=== PATIENT | female | born 1980 | race Caucasian/White ===

== ENCOUNTER 2017-11-03 09:55 | Day surgery (SDC) | payer OTHER ==
[2017-11-03] MEDS ORDERED: NORMAL SALINE IV ONE (10:30)
[2017-11-03] MEDS ORDERED: SODIUM FERRIC GLUC COMPLEX IV ONE (10:30)
[2017-11-03 10:41] VITALS: BP 103/71
== END 2017-11-03 12:15 | disposition home or self-care (01) ==
LOC: SSTAY O 09:55
PROVIDERS: ATTEND Obstetrics & Gynecology
DX: O99.019 Anemia complicating pregnancy, unspecified trimester (principal)
CPT/HCPCS: 96365; J2916

== ENCOUNTER 2017-11-04 08:33 | Day surgery (SDC) | payer OTHER ==
[~2017-11-04] VITALS: Ht 162.6 cm; Wt 77.7 kg
[~2017-11-04 08:33] MED LIST: NORMAL SALINE IV ONE; SODIUM FERRIC GLUC COMPLEX IV ONE
[2017-11-04 10:00] VITALS: BP 99/52
== END 2017-11-04 11:26 | disposition home or self-care (01) ==
LOC: SSTAY O 08:33
PROVIDERS: ATTEND Obstetrics & Gynecology
DX: O99.019 Anemia complicating pregnancy, unspecified trimester (principal)
CPT/HCPCS: 96365; J2916

== ENCOUNTER 2017-11-08 08:57 | Day surgery (SDC) | payer OTHER ==
[~2017-11-08] VITALS: Ht 162.6 cm; Wt 78.6 kg
[2017-11-08] MEDS ORDERED: SODIUM FERRIC GLUC COMPLEX IV ONE (09:05)
[2017-11-08] MEDS ORDERED: NORMAL SALINE IV ONE (09:05)
[2017-11-08] MEDS ORDERED: NO HOME MEDS (09:36)
[2017-11-08 09:44] VITALS: BP 106/57
[2017-11-08 10:55] VITALS: BP 105/52
== END 2017-11-08 10:55 | disposition home or self-care (01) ==
LOC: SSTAY O 08:57
PROVIDERS: ATTEND Obstetrics & Gynecology
DX: O99.012 Anemia complicating pregnancy, second trimester (principal)
CPT/HCPCS: 96365; J2916

== ENCOUNTER 2017-11-29 10:42 | Outpatient (CLI) | payer OTHER ==
[~2017-11-29 10:42] MED LIST changes: +NO HOME MEDS; -NORMAL SALINE IV ONE; -SODIUM FERRIC GLUC COMPLEX IV ONE
[2017-11-29 11:21] LABS: BASOPHILS # (AUTO) 0.1 X10'3 (0-0.2); BASOPHILS % (AUTO) 0.4 % (0-1); EOSINOPHILS # (AUTO) 0.1 X10'3 (0-0.9); EOSINOPHILS % (AUTO) 0.9 % (0-6); HEMOGLOBIN 10.4 g/dl (12.0-16.0); LYMPHOCYTES # (AUTO) 1.5 X10'3 (1.1-4.8); LYMPHOCYTES % (AUTO) 11.2 % (21-51); MEAN CORPUSCULAR HEMOGLOBIN 29.2 PG (27.0-31.0); MEAN CORPUSCULAR HGB CONC 34.8 % (33.0-36.5); MEAN CORPUSCULAR VOLUME 83.7 FL (78-98); MEAN PLATELET VOLUME 8.4 FL (7.4-10.4); MONOCYTES # (AUTO) 0.6 X10'3 (0-0.9); MONOCYTES % (AUTO) 4.9 % (2-12); NEUTROPHILS # (AUTO) 10.8 X10'3 (1.8-7.7); NEUTROPHILS % (AUTO) 82.6 % (42-75); PLATELET COUNT 283 X10'3 (140-440); RED BLOOD COUNT 3.58 X10'6 (4.20-5.60); RED CELL DISTRIBUTION WIDTH 17.9 % (11.5-14.5); WHITE BLOOD COUNT 13.1 X10'3 (4.5-11.0)
[2017-11-29 12:23] LABS: ANISOCYTOSIS 2+; PLATELET ESTIMATE NORMAL; TOTAL CELLS COUNTED 100
[2017-11-29 12:24] LABS: TOXIC GRANULATION 2+
== END 2017-11-29 23:59 | disposition home or self-care (01) ==
LOC: LAB 10:42
PROVIDERS: ATTEND Obstetrics & Gynecology
DX: O99.013 Anemia complicating pregnancy, third trimester (principal); Z3A.00 Weeks of gestation of pregnancy not specified
CPT/HCPCS: 36415; 85025

== ENCOUNTER 2017-12-27 09:16 | Outpatient (CLI) | payer OTHER ==
[2017-12-27 09:49] LABS: BASOPHILS % (AUTO) 0.2 % (0-1); EOSINOPHILS # (AUTO) 0.4 X10'3 (0-0.9); EOSINOPHILS % (AUTO) 2.9 % (0-6); HEMOGLOBIN 9.8 g/dl (12.0-16.0); LYMPHOCYTES # (AUTO) 1.3 X10'3 (1.1-4.8); LYMPHOCYTES % (AUTO) 10.4 % (21-51); MEAN CORPUSCULAR HEMOGLOBIN 27.6 PG (27.0-31.0); MEAN CORPUSCULAR HGB CONC 33.9 % (33.0-36.5); MEAN CORPUSCULAR VOLUME 81.5 FL (78-98); MEAN PLATELET VOLUME 8.4 FL (7.4-10.4); MONOCYTES # (AUTO) 0.5 X10'3 (0-0.9); MONOCYTES % (AUTO) 3.8 % (2-12); NEUTROPHILS # (AUTO) 10.6 X10'3 (1.8-7.7); NEUTROPHILS % (AUTO) 82.7 % (42-75); PLATELET COUNT 287 X10'3 (140-440); RED BLOOD COUNT 3.56 X10'6 (4.20-5.60); RED CELL DISTRIBUTION WIDTH 18.6 % (11.5-14.5); WHITE BLOOD COUNT 12.9 X10'3 (4.5-11.0)
== END 2017-12-27 23:59 | disposition home or self-care (01) ==
LOC: LAB 09:16
PROVIDERS: ATTEND Physician Assistant
DX: O99.013 Anemia complicating pregnancy, third trimester (principal); O09.523 Supervision of elderly multigravida, third trimester; Z3A.00 Weeks of gestation of pregnancy not specified
CPT/HCPCS: 36415; 85025

== ENCOUNTER 2017-12-30 09:05 | Day surgery (SDC) | payer OTHER ==
[~2017-12-30] VITALS: Ht 162.6 cm; Wt 83.0 kg
[2017-12-30] MEDS ORDERED: SODIUM FERRIC GLUC COMPLEX IV ONE (09:40)
[2017-12-30] MEDS ORDERED: NORMAL SALINE IV ONE (09:40)
[2017-12-30 10:49] VITALS: BP 114/60
== END 2017-12-30 11:45 | disposition home or self-care (01) ==
LOC: SSTAY O 09:05
PROVIDERS: ATTEND Obstetrics & Gynecology
DX: O99.019 Anemia complicating pregnancy, unspecified trimester (principal); Z3A.00 Weeks of gestation of pregnancy not specified
CPT/HCPCS: 96365; J2916; J7030

== ENCOUNTER 2018-01-02 09:03 | Day surgery (SDC) | payer OTHER ==
[2018-01-02] MEDS ORDERED: SODIUM FERRIC GLUC COMPLEX IV ONE (09:35)
[2018-01-02] MEDS ORDERED: NORMAL SALINE IV ONE (09:35)
[2018-01-02 10:30] VITALS: BP 117/71
[2018-01-02 11:40] VITALS: BP 102/62
== END 2018-01-02 11:40 | disposition home or self-care (01) ==
LOC: SSTAY O 09:03
PROVIDERS: ATTEND Obstetrics & Gynecology
DX: O99.019 Anemia complicating pregnancy, unspecified trimester (principal); Z3A.00 Weeks of gestation of pregnancy not specified
CPT/HCPCS: 96365; J2916; J7030

== ENCOUNTER 2018-01-03 09:15 | Day surgery (SDC) | payer OTHER ==
[~2018-01-03] VITALS: Ht 162.6 cm; Wt 81.9 kg
[2018-01-03] MEDS ORDERED: NORMAL SALINE IV ONE (09:20)
[2018-01-03] MEDS ORDERED: SODIUM FERRIC GLUC COMPLEX IV ONE (09:20)
[2018-01-03 10:10] VITALS: BP 111/48
[2018-01-03 11:40] VITALS: BP 120/65
== END 2018-01-03 11:40 | disposition home or self-care (01) ==
LOC: SSTAY O 09:15
PROVIDERS: ATTEND Obstetrics & Gynecology
DX: O09.529 Supervision of elderly multigravida, unspecified trimester (principal); O99.019 Anemia complicating pregnancy, unspecified trimester; Z3A.00 Weeks of gestation of pregnancy not specified
CPT/HCPCS: 96365; J2916; J7030

== ENCOUNTER 2018-01-06 09:57 | Outpatient (CLI) | payer OTHER ==
[2018-01-06 10:18] LABS: BASOPHILS % (AUTO) 0.3 % (0-1); EOSINOPHILS # (AUTO) 0.2 X10'3 (0-0.9); EOSINOPHILS % (AUTO) 1.8 % (0-6); HEMOGLOBIN 10.2 g/dl (12.0-16.0); LYMPHOCYTES # (AUTO) 1.3 X10'3 (1.1-4.8); LYMPHOCYTES % (AUTO) 9.8 % (21-51); MEAN CORPUSCULAR HEMOGLOBIN 27.7 PG (27.0-31.0); MEAN CORPUSCULAR HGB CONC 33.9 % (33.0-36.5); MEAN CORPUSCULAR VOLUME 81.9 FL (78-98); MEAN PLATELET VOLUME 7.8 FL (7.4-10.4); MONOCYTES # (AUTO) 0.5 X10'3 (0-0.9); MONOCYTES % (AUTO) 3.3 % (2-12); NEUTROPHILS # (AUTO) 11.6 X10'3 (1.8-7.7); NEUTROPHILS % (AUTO) 84.8 % (42-75); PLATELET COUNT 279 X10'3 (140-440); RED BLOOD COUNT 3.66 X10'6 (4.20-5.60); RED CELL DISTRIBUTION WIDTH 19.4 % (11.5-14.5); WHITE BLOOD COUNT 13.7 X10'3 (4.5-11.0)
== END 2018-01-06 23:59 | disposition home or self-care (01) ==
LOC: LAB 09:57
PROVIDERS: ATTEND Physician Assistant
DX: O26.893 Other specified pregnancy related conditions, third trimester (principal); Z3A.00 Weeks of gestation of pregnancy not specified
CPT/HCPCS: 36415; 85025

== ENCOUNTER 2018-03-30 08:02 | Day surgery (SDC) | payer OTHER ==
[~2018-03-30] VITALS: Ht 162.6 cm; Wt 74.6 kg
[2018-03-30] VITALS (8 sets, daily range): BP systolic 113–129; BP diastolic 63–78
[~2018-03-30 08:02] MED LIST changes: +famotidine 20mg tablet PO ONE; +ringers solution, lacted 1,000 ML IV SCH
[2018-03-30 08:45] LABS: ALANINE AMINOTRANSFERASE 15 U/L (12-78); ALBUMIN/GLOBULIN RATIO 1.1 (1.1-1.5); ALKALINE PHOSPHATASE 55 IU/L (46-116); ANION GAP 8 (8-16); ASPARTATE AMINO TRANSFERASE 12 U/L (10-37); BILIRUBIN,TOTAL 0.7 MG/DL (0.1-1.0); BLOOD UREA NITROGEN 8 MG/DL (7-18); BUN/CREATININE RATIO 9.5 (6.6-38.0); CALCIUM 8.8 MG/DL (8.5-10.1); CHLORIDE 104 MMOL/L (99-107); CREATININE 0.84 MG/DL (0.40-0.90); GLUCOSE 86 MG/DL (70-104); POTASSIUM 3.5 MMOL/L (3.5-5.1); SODIUM 142 MMOL/L (135-145); TOTAL CARBON DIOXIDE 29.9 MMOL/L (24-32); TOTAL PROTEIN 7.6 G/DL (6.4-8.2); eGFR 76 ML/MIN
[2018-03-30 08:50] LABS: BASOPHILS % (AUTO) 0.4 % (0-1); EOSINOPHILS # (AUTO) 0.2 X10'3 (0-0.9); EOSINOPHILS % (AUTO) 2.7 % (0-6); HCG SERUM QL NEGATIVE; HEMATOCRIT 37.5 % (35.0-45.0); HEMOGLOBIN 12.9 g/dl (12.0-16.0); LYMPHOCYTES # (AUTO) 1.5 X10'3 (1.1-4.8); LYMPHOCYTES % (AUTO) 23.1 % (21-51); MEAN CORPUSCULAR HEMOGLOBIN 29.9 PG (27.0-31.0); MEAN CORPUSCULAR HGB CONC 34.3 % (33.0-36.5); MEAN CORPUSCULAR VOLUME 87.2 FL (78-98); MONOCYTES # (AUTO) 0.3 X10'3 (0-0.9); MONOCYTES % (AUTO) 4.4 % (2-12); NEUTROPHILS # (AUTO) 4.4 X10'3 (1.8-7.7); NEUTROPHILS % (AUTO) 69.4 % (42-75); PLATELET COUNT 295 X10'3 (140-440); RED CELL DISTRIBUTION WIDTH 14.7 % (11.5-14.5); WHITE BLOOD COUNT 6.3 X10'3 (4.5-11.0)
[2018-03-30] MEDS ORDERED: BUPIVAcaine/PF 2.5 mg/ml (0.25%) 30ml vial ONE (09:10)
[2018-03-30] MEDS ORDERED: fentaNYL/PF 50MCG/1 ML 2ML syringe ONE (09:56)
[2018-03-30] MEDS ORDERED: rocuronium 10mg/ml inj IV ONE (09:56)
[2018-03-30] MEDS ORDERED: dexamethasone sod phosphate 4mg/ml inj. ONE (09:56)
[2018-03-30] MEDS ORDERED: LIDOcaine 2% (20mg/ml) 5ml vial ONE (09:56)
[2018-03-30] MEDS ORDERED: propofol inj 20 ML IV ONE (09:56)
[2018-03-30] MEDS ORDERED: midazolam 2 mg/2 ml injection ONE (09:56)
[2018-03-30] MEDS ORDERED: glycopyrrolate 0.2mg/ml inj ONE (10:09)
[2018-03-30] MEDS ORDERED: neostigmine methylsulfate 1 MG/ML 10ml vial ONE (10:09)
[2018-03-30] MEDS ORDERED: ringers solution, lacted 1,000 ML IV SCH (10:21)
[2018-03-30] MEDS ORDERED: ondansetron/PF 4mg/2ml inj IV PRN (10:25)
[2018-03-30] MEDS ORDERED: morphine 4 MG/ML inj SYRINge IV PRN ×2 (10:25)
[2018-03-30] MEDS ORDERED: fentaNYL/PF 50MCG/1 ML 2ML syringe IV PRN ×2 (10:25)
[2018-03-30] MEDS ORDERED: hydrALAZINE 20mg/ml inj. IV PRN (10:25)
[2018-03-30] MEDS ORDERED: labetalol 20mg/4ml (5mg/ml) syringe IV PRN (10:25)
[2018-03-30] MEDS ORDERED: BUPIVAcaine/PF 2.5 mg/ml (0.25%) 30ml vial IJ ONE (10:48)
== END 2018-03-30 11:40 | disposition home or self-care (01) ==
LOC: PRE-OP 08:02 → PAS 11:40
PROVIDERS: ATTEND Obstetrics & Gynecology
DX: Z30.2 Encounter for sterilization (principal); Z79.899 Other long term (current) drug therapy; Z83.3 Family history of diabetes mellitus; Z80.9 Family history of malignant neoplasm, unspecified; Z82.49 Family history of ischemic heart disease and other diseases of the circulatory system
CPT/HCPCS: 36415; 58661; 80053; 84703; 85025; 86885; 86900; 86901; J1100; J2001; J2250; J2704; J2710; J3010; J3490; J7120; A6250

== ENCOUNTER 2018-07-04 04:42 | Outpatient (CLI) | payer SELFPAY ==
[~2018-07-04 04:42] MED LIST changes: -famotidine 20mg tablet PO ONE; -ringers solution, lacted 1,000 ML IV SCH
[2018-07-04 10:19] LABS: CHOL/HDL RATIO 3.38 (0.00-4.99)
[2018-07-04 10:23] LABS: HEMOGLOBIN A1C 5.5 % (4.5-6.2)
== END 2018-07-04 23:59 | disposition home or self-care (01) ==
LOC: HW HEART 04:42
DX: Z13.6 Encounter for screening for cardiovascular disorders (principal)
CPT/HCPCS: 36415

== ENCOUNTER 2018-11-10 08:17 | Outpatient (CLI) | payer OTHER ==
[2018-11-10 08:56] LABS: BASOPHILS % (AUTO) 0.5 % (0-1); EOSINOPHILS # (AUTO) 0.1 X10'3 (0-0.9); EOSINOPHILS % (AUTO) 2.5 % (0-6); HEMATOCRIT 40.1 % (35.0-45.0); HEMOGLOBIN 13.1 g/dl (12.0-16.0); LYMPHOCYTES # (AUTO) 1.2 X10'3 (1.1-4.8); LYMPHOCYTES % (AUTO) 23.6 % (21-51); MEAN CORPUSCULAR HEMOGLOBIN 28.6 PG (27.0-31.0); MEAN CORPUSCULAR HGB CONC 32.7 % (33.0-36.5); MEAN CORPUSCULAR VOLUME 87.5 FL (78-98); MEAN PLATELET VOLUME 8.5 FL (7.4-10.4); MONOCYTES # (AUTO) 0.2 X10'3 (0-0.9); MONOCYTES % (AUTO) 4.3 % (2-12); NEUTROPHILS # (AUTO) 3.7 X10'3 (1.8-7.7); NEUTROPHILS % (AUTO) 69.1 % (42-75); PLATELET COUNT 373 X10'3 (140-440); RED BLOOD COUNT 4.59 X10'6 (4.20-5.60); RED CELL DISTRIBUTION WIDTH 12.1 % (11.5-14.5); WHITE BLOOD COUNT 5.2 X10'3 (4.5-11.0)
[2018-11-10 09:27] LABS: ALANINE AMINOTRANSFERASE 30 U/L (12-78); ALBUMIN 4.2 G/DL (3.4-5.0); ALBUMIN/GLOBULIN RATIO 1.1 (1.1-1.5); ALKALINE PHOSPHATASE 63 IU/L (46-116); ANION GAP 10 (8-16); ASPARTATE AMINO TRANSFERASE 17 U/L (10-37); BILIRUBIN,TOTAL 0.4 MG/DL (0.1-1.0); BLOOD UREA NITROGEN 15 MG/DL (7-18); BUN/CREATININE RATIO 17.4 (6.6-38.0); CALCIUM 9.2 MG/DL (8.5-10.1); CHLORIDE 102 MMOL/L (99-107); CHOL/HDL RATIO 2.9 (0.00-4.99); CHOLESTEROL 216 MG/DL (0-200); CREATININE 0.86 MG/DL (0.40-0.90); GLUCOSE 90 MG/DL (70-104); HDL CHOLESTEROL 75 MG/DL (35-60); LDL CHOLESTEROL 131 MG/DL (50-100); SODIUM 141 MMOL/L (135-145); TOTAL CARBON DIOXIDE 28.9 MMOL/L (24-32); TOTAL PROTEIN 8.1 G/DL (6.4-8.2); TRIGLYCERIDES 54 MG/DL (20-135); eGFR 74 ML/MIN
== END 2018-11-10 23:59 | disposition home or self-care (01) ==
LOC: LAB 08:17
PROVIDERS: ATTEND Family Medicine
DX: Z00.00 Encounter for general adult medical examination without abnormal findings (principal); R00.2 Palpitations; M54.9 Dorsalgia, unspecified
CPT/HCPCS: 36415; 80053; 80061; 84436; 84443; 85025